=== PATIENT | male | born 1945 | race Caucasian/White ===

== ENCOUNTER → 2017-08-08 | Outpatient (CLI) | payer OTHER ==
[~2017-08-08] MED LIST: B12INJ; CALICUM 500+D1 EACH PO; CINNAMON PO; COUMADIN 5 MG TA5 M1 PO; COUMADIN PO; GLUCOPHAGE500 MG PO; GLUCOTROL10 MG PO; HUMALOG100 UNIT/1 SQ; LANTUSSOLASTAR SQ; MULTIVITAMINS PO; VITAMIN B-625 MG PO; VITAMIN D1000 UNI1 PO; VITAMIN E400 UNIT PO; VITCB500GO PO
== END ==
LOC: M.NUC 07-14 13:38
DX: T84.033A Mechanical loosening of internal left knee prosthetic joint, initial encounter (principal)